=== PATIENT | female | born 1970 | race Caucasian/White ===

== ENCOUNTER 2019-06-10 05:17 | Observation (INO) ==
--- NOTE | 2019-06-08 13:05 | Anesthesiology Consultation ---
Date of Service June 08, 2019 Assessment & Plan (1) Encounter for pre-operative examination: Chart Review Chart Review: Acceptable Risk for Surgery and Patient NOT seen in Pre Admission Testing Consults Requested none History Surgery Operation Date: 06/10/19 07:15 Proposed Procedures p Laparoscopic Cholecystectomy - Seb Wolf MD, FACS Height/Weight Height: 5 ft 2 in Weight: 77.111 kg Allergies Allergy/AdvReac Type Severity Reaction Status Date / Time adhesive Allergy Unknown BLISTERS Verified 06/08/19 11:35 Medications Home Medications Medication Instructions Recorded Confirmed Last Taken No Known Home Medications 10/06/18 06/08/19 Unknown Past Medical History Medical History Non-functioning gallbladder Sludge in gallbladder Exercise / Class Metabolic Activity II 4-5 Yardwork/Stairs/Walk up hill Past Family History Family History Mother Stroke Father No problems noted. Other No family history of adverse response to anesthesia Past Surgical History Surgical History H/O foot surgery History of arthroscopy RIGHT SHOULDER History of bilateral tubal ligation History of bunionectomy History of endoscopic sinus surgery History of surgery Left Nirschl procedure Social History Smoking Status: Never smoker Smoking cigarettes per day: 0 Do You Dip or Chew Tobacco: No Hx Alcohol Use: No Hx Substance Use: No substance use type: does not use Testing Laboratory Results 05/12/19 Na 142 K 4.2 Cl 107 CO2 28 BUN 15 Cr 0.6 glucose 85 WBC 9.3 Hgb 13.9 platelet 350 Electrocardiogram Date: 05/12/19 Findings: + NSR @ (78 bpm) probable inferior infarct, no acute change as compared to 06/13/16 EKG
[2019-06-10] MEDS ORDERED: LR 15ML/HR IV SCH (06:00)
[2019-06-10] MEDS ORDERED: cefUROXime 1,500 MG in DEXTROSE 5% 100 ML IV SCH (06:00)
[2019-06-10] MEDS ORDERED: ACETAMINOPHEN 1000 MG/100 ML IV IV ONE (06:44)
[2019-06-10] MEDS ORDERED: DEXAMETHASONE SOD INJ 4 MG/ML VIAL ONE (06:47)
[2019-06-10] MEDS ORDERED: MIDAZOLAM HCL 1 MG/ML 2ML VIAL ONE (06:47)
[2019-06-10] MEDS ORDERED: LARYING-O-JET KIT (LTA) ONE (06:47)
[2019-06-10] MEDS ORDERED: fentaNYL citrate 100 MCG/2 ML VIAL ONE ×2 (06:47→07:39)
[2019-06-10] MEDS ORDERED: ONDANSETRON INJ 2 MG/ML 2 ML VIAL ONE (06:47)
[2019-06-10] MEDS ORDERED: ROCURONIUM BROMIDE 10 MG/ML 5 ML VIAL ONE (06:47)
[2019-06-10] MEDS ORDERED: PROPOFOL IV EMULSION 10 MG/ML 20 ML VIAL IV ONE (06:47)
[2019-06-10] MEDS ORDERED: LIDOCAINE HCL 2% 2 ML VIAL/AMP(20MG/ML) INFIL ONE (06:47)
--- NOTE | 2019-06-10 06:51 | History & Physical Bridge Note ---
Date of Service June 10, 2019 History & Physical Bridge Note I have examined the patient, reviewed the History & Physical and in the interval since the performance of the History & Physical I have noted the following changes of clinical significance: no changes noted
[2019-06-10] MEDS ORDERED: BUPIVACAINE 0.5 % 5 MG/1 ML MPF 30ML VIAL ONE (07:00)
[2019-06-10] MEDS ORDERED: fentaNYL citrate 100 MCG/2 ML VIAL IV PRN (07:50)
[2019-06-10] MEDS ORDERED: ATROPINE SULFATE 0.1 MG/ML 10ML SYR IV PRN (07:50)
[2019-06-10] MEDS ORDERED: ePHEDrine sulfate 50 MG/ML AMP IV PRN (07:50)
[2019-06-10] MEDS ORDERED: ONDANSETRON INJ 2 MG/ML 2 ML VIAL IV PRN ×2 (07:50→09:11)
[2019-06-10] MEDS ORDERED: PROMETHAZINE HCL 12.5 MG in SODIUM CHLORIDE 0.9% 50 ML IV PRN ×2 (07:50→09:11)
[2019-06-10] MEDS ORDERED: HYDROmorphone INJ 2 MG/ML SYR/VIAL IV PRN (07:50)
--- NOTE | 2019-06-10 08:07 | Post Operative Brief Note ---
PG Immediate Post Op with CF Date of Surgery June 10, 2019 Pre & Post Diagnosis Operation Date: 06/10/19 07:15 Pre-Op Diagnosis: Biliary Dyskinesia, Gallbladder Sludge Post-Op Diagnosis: Biliary Dyskinesia, Gallbladder Sludge I identified the patient and participated in the time-out.: Yes Procedure Operation Date: 06/10/19 07:15 Actual Procedures p Laparoscopic Cholecystectomy(Not Applicable) - Seb Wolf MD, FACS Surgeon Seb Wolf MD, FACS Senior Paralegal nurses Estimated Blood Loss 5 Findings Consistent with Post-Op Diagnosis Specimens Specimen Description: A. Gallbladder and contents
[2019-06-10] MEDS ORDERED: ACETAMINOPHEN 1,000 MG/100 ML VIAL IV ONE (08:08)
[2019-06-10] MEDS ORDERED: ACETAMINOPHEN 325 MG TAB PO PRN (09:11)
[2019-06-10] MEDS ORDERED: PROMETHAZINE HCL 25 MG in SODIUM CHLORIDE 0.9% 50 ML IV PRN (09:11)
[2019-06-10] MEDS ORDERED: IBUPROFEN 600 MG TAB PO PRN (09:11)
[2019-06-10] MEDS ORDERED: HYDROCODONE/ACETAMOPHEN 5/325MG TAB PO PRN ×2 (09:11)
[2019-06-10] MEDS ORDERED: MoRPHine SULFATE 2 MG/ML CARP IV PRN ×2 (09:11)
--- NOTE | 2019-06-10 09:28 | Operative Report ---
DATE OF OPERATION: 06/10/2019 NAME OF OPERATION: Laparoscopic cholecystectomy. PREOPERATIVE DIAGNOSIS: Biliary colic. POSTOPERATIVE DIAGNOSIS: Biliary colic. STAFF SURGEON: Seb Wolf MD ANESTHESIA: General. DESCRIPTION OF PROCEDURE: The patient was brought in the operating room and placed on the operating table in supine position. Her abdomen was prepped and draped in usual fashion. Pneumatic stockings, orogastric tube were placed. All incisions were anesthetized using 0.5% plain Marcaine. Incision was made above the umbilicus, carrying dissection down to the fascia, placing a Veress needle producing pneumoperitoneum. An 11 mm port was placed at this level and under visualization, three 5 mm ports placed, 1 cephalad and 2 laterally. Gallbladder was grasped and retracted. It was distended. It was aspirated of bile. Dissection was carried out the jonel hepatis, identifying the cystic duct and cystic artery. These were clipped and transected and the gallbladder dissected away from the liver bed. There was some mild inflammation and scarring in the upper part of the liver bed. At this point, the gallbladder was placed in an Endobag. After appropriate irrigation and hemostasis, the Endobag was removed through the umbilical site. All ports were then removed. Fascia at the umbilicus closed using 0 Vicryl suture. Skin reapproximated using subcuticular 4-0 Monocryl with Dermabond. The patient was transferred to recovery room in stable condition. I attest to the content of the Intraoperative Record and any orders documented therein. Any exception s are noted below.
--- NOTE | 2019-06-10 09:44 | Anesthesiology Progress Note ---
Date of Service June 10, 2019 Anesthesia Post Procedure Vital Signs Vital Signs: Temp Pulse Pulse Resp BP BP Pulse Ox 06/10/19 09:28 61 16 99/63 L 92 06/10/19 08:45 36.9 C 62 17 99/48 L 93 06/10/19 08:35 60 18 106/62 97 06/10/19 08:25 59 L 17 110/58 L 97 06/10/19 08:16 37.0 C 64 15 111/64 96 06/10/19 05:47 36.7 C 72 16 134/76 97 Pain Intensity Lower Back: Pain Intensity: 5 Transfer of Care Handoff Completed per policy Notes Mental Status: alert / awake / arousable and participated in evaluation Patient Amnestic to Procedure: Yes Nausea / Vomiting: adequately controlled Pain: adequately controlled Airway Patency, RR, SpO2: stable & adequate BP & HR: stable & adequate Hydration State: stable & adequate Anesthetic Complications: no major complications apparent and Pt Satisfied with anesthetic care
[2019-06-10] MEDS: LACTATED RINGER'S 1,000 ML IV SCH (09:56)
[2019-06-10] MEDS ORDERED: HYDROmorphone INJ 0.5 MG/0.5 ML SYR IV PRN (15:42)
[2019-06-10] MEDS: KETOROLAC 30 MG/ML VIAL IV SCH ×2 (16:16→23:12)
[2019-06-11] MEDS: KETOROLAC 30 MG/ML VIAL IV SCH (05:15)
[2019-06-11] MEDS: LACTATED RINGER'S 1,000 ML IV SCH (05:15)
--- NOTE | 2019-06-11 07:11 | Discharge Summary ---
PRINCIPAL DIAGNOSIS: Biliary colic. PROCEDURE: The patient underwent laparoscopic cholecystectomy. HISTORY OF PRESENT ILLNESS: The patient is a 49-year-old female who has been having recent persistent right upper quadrant pain with significantly abnormal HIDA scan and pain during the procedure. She was brought into the hospital on 06/10/2019 where she underwent laparoscopic cholecystectomy, which she tolerated very well. She was doing quite well this morning with no significant physical findings of abnormality. She is ready for discharge to be followed in the surgical clinic within 1-2 weeks.
== END 2019-06-11 10:19 | disposition home or self-care (01) ==
LOC: 3N 05:17 → ASU 05:17